=== PATIENT | female | born 1950 | race Caucasian/White ===

== ENCOUNTER → 2017-03-15 | Day surgery (SDC) | payer MEDICARE, OTHER ==
[~2017-03-15] VITALS: Ht 154.9 cm; Wt 118.4 kg
[~2017-03-15] MED LIST: 0.9% Sodium Chloride 1,000 ML IV ONE; 0.9% Sodium Chloride 1,000 ML IV SCH; AMLO10TA3 PO; ASPI325T32 PO; CHOL10008 PO; FURO40TA4 PO; GEMF600T3 PO; INSU100I13 SUBQ; INSU100I18 SUBQ; INSU500V SUBQ; LIP40 PO; LORA10CA9 PO; LOSA50TA37 PO; MAGN100T5 PO; MELO-253 PO; METF500T4 PO; METO50TA3 PO; MULT-1018 PO; NIAC500T21 PO; OMEG-38 PO; OMEG1CAP56 PO; OMEP20TA86 PO; POTA-62 PO; POTA2TAB16 PO; Sodium Chloride LOK Flush 10 mL Syringe IV PRN; fentaNYL-PF 50 mCg/mL 2 mL Inj IVPUSH PRN
[2017-03-15 07:59] VITALS: BP 136/57; PULSE 74; RESP 12; O2SAT 95
--- NOTE | 2017-03-15 08:52 | PCM.ENDCOL ---
Colonoscopy Date of Service: Mar 15, 2017 Physician Jason Borjas MD Pre Procedure Diagnosis: Screening Post Procedure Dx & Findings: Polyp hemorrhoids diverticuli Procedure Colonoscopy PROCEDURE IN DETAIL: Prep adequate Withdrawal time 20 minutes After unremarkable rectal examination the Olympus video colonoscope was inserted patient's anal canal and was advanced to cecum. Landmarks were identified including the ileocecal valve and appendiceal orifice. Scope was withdrawn systematically. Visualized colonic mucosa showed healthy shiny mucosa with normal healthy-appearing vasculature. In the cecum, there was a 2 mm polyp was removed completely using cold snare. Persistent bleeding noted afterwards. Resolution clip deployed. Bleeding stopped. In the transverse colon, there was a 5 mm polyp which was removed completely using cold snare. Bleeding noted again. Resolution clip applied and bleeding stopped. There was a another 2 mm polyp which was removed completely using cold snare. Also in the transverse colon, there was a 1-1/2 cm lipoma with positive pillow sign. Biopsy obtained to confirm. In the descending colon, there was a 3 mm polyp which was removed completely using cold snare. Also there was a 2 mm polyp which got lost during retrieval process. This was removed completely using cold snare as well. In the sigmoid colon and to some extent in the descending colon, several small to medium sized diverticuli noted. In the rectum retroflexion was done which showed hemorrhoids. Anal canal was inspected carefully on the way out and hemorrhoids noted. Impression Polyps 5 status post complete removal. One 2 mm polyp in the descending colon was not retrieved. Diverticuli Hemorrhoids Recommendation Repeat colonoscopy 3 years. I would recommend next colonoscopy should be with anesthesia. Diverticular diet Presedation Assessment Risks and Benefits Informed consent was obtained from the patient after all risks and benefits including but not limited to drug reaction, infection, pain, bleeding, perforation, as well as alternatives were discussed. Patient monitoring Continuous pulse oximetry, cardiac monitoring, blood pressure monitoring, IV access, and oxygen at 2L per nasal cannula. Periprocedural Fentanyl: Fentanyl 75mcg Incrementally Midazolam: Midazolam 3mg Incrementally Complications There were no periprocedural complications identified. Post Procedure Plan Post Procedure Recommendations 1. Restrict activities today. 2. Resume normal activities in the morning. 3. Resume medications. 4. Patient informed of normal post procedure side effects as bloating, drowsiness, blood streaking in the stool. 5. average risk CRCS. If colon polyps come back as: -Hyperplastic- can repeat colonoscopy in 10 years -Tubular adenoma- repeat colonoscopy in 5 years -Tubulovillous/villous adenoma- repeat colonoscopy in 3 years -If any dysplasia- return to clinic as soon as possible 6. Please don't hesitate to call me with any questions. Jason Borjas MD Mar 15, 2017 08:52
[2017-03-15 08:53] VITALS: BP 140/87; PULSE 72; RESP 14; O2SAT 99
[2017-03-15 09:05] VITALS: BP 121/61; PULSE 72; RESP 16; O2SAT 99
[2017-03-15 09:12] VITALS: BP 145/72; PULSE 75; RESP 14; O2SAT 94
--- NOTE | 2017-03-17 12:11 | PATH ---
SURGICAL PATHOLOGY Attending Physician:Jason Borjas M.D. CASE STATUS: Signed Out PATIENT NAME: GANESH SANDRA PID: [id number] : 1950 DATE COLLECTED:03/15/2017 17:20 SPECIMEN: 1: Colon, Polyp 2: Colon, Polyp 3: Colon, Biopsy 4: Colon, Polyp CLINICAL HISTORY: 1). CECUM POLYP 2). TRANSVERSE POLYPS 3). TRANSVERSE LIPOMA 4). DESCENDING POLYP FINAL DIAGNOSIS: 1.CECUM POLYP, BIOPSY: TUBULAR ADENOMA. 2.TRANSVERSE POLYPS, BIOPSY: FOUR FRAGMENTS OF TUBULAR ADENOMA. 3.TRANSVERSE COLON LIPOMA, BIOPSY: COLONIC MUCOSA WITH NO DIAGNOSTIC ABNORMALITY. SUBMUCOSAL TISSUE NOT PRESENT FOR EVALUATION. 4.DESCENDING POLYP, BIOPSY: TUBULAR ADENOMA. ICD10 D12.6 GROSS DESCRIPTION: The specimen is received in three formalin filled containers labeled with the patient's name. 1). The specimen is labeled "cecum polyp" and consists of a 0.4 x 0.3 x 0.3 CM portion of tissue which is entirely submitted in cassette 1A. 2). The specimen is labeled "transverse polyp" and consists of 4 portions of tissue which aggregate to 0.6 0.5 x 0.4 CM. The specimen is entirely submitted in cassette 2A. 3). The specimen is labeled "transverse lipoma" and consists of a 0.2 x 0.2 x 0.2 CM portion of tissue which is entirely submitted in cassette 3A. 4). The specimen is labeled "descending polyp" and consists of a 0.4 x 0.3 x 0.3 CM portion of tissue which is entirely submitted in cassette 4A. 03/15/2017DC MICRO DESCRIPTION: See diagnosis. ICD-9 CODES: CPT CODES: 1: 57680 2: 85588 3: 36705 4: 30928 Electronically Signed Out Hany Abdi MD, PhD [facility] [address] [place] [address], [place] [address] Technical component performed at [facility], [facility] [address], [place], [address]
== END | disposition home or self-care (01) ==
LOC: END 00:23
PROVIDERS: ATTEND Internal Medicine
DX: Z12.11 Encounter for screening for malignant neoplasm of colon (principal); D12.0 Benign neoplasm of cecum; D12.3 Benign neoplasm of transverse colon; D12.4 Benign neoplasm of descending colon; K57.30 Diverticulosis of large intestine without perforation or abscess without bleeding; K64.9 Unspecified hemorrhoids; I10 Essential (primary) hypertension; E11.65 Type 2 diabetes mellitus with hyperglycemia; E78.2 Mixed hyperlipidemia; E66.01 Morbid (severe) obesity due to excess calories; G47.33 Obstructive sleep apnea (adult) (pediatric); Z79.82 Long term (current) use of aspirin; Z79.4 Long term (current) use of insulin; Z79.84 Long term (current) use of oral hypoglycemic drugs; Z90.710 Acquired absence of both cervix and uterus; Z68.42 Body mass index [BMI] 45.0-49.9, adult
CPT/HCPCS: 45385; 88305; 99153; G0500; J2250; J3010; J7030